=== PATIENT | female | born 1995 | race Caucasian/White ===

== ENCOUNTER 2021-06-17 00:10 | Inpatient (IN) | payer BC ==
[2021-06-17] MEDS ORDERED: Ibuprofen 800 MG TAB PO PRN (00:22)
[2021-06-17] MEDS ORDERED: Misoprostol 200 MCG TAB PR PRN (00:22)
[2021-06-17] MEDS ORDERED: Butorphanol Tartrate 1 MG/ML VIAL SLOW IVP PRN (00:22)
[2021-06-17] MEDS ORDERED: Lidocaine 1% (PF) 30 ML VIAL SC PRN (00:22)
[2021-06-17] MEDS ORDERED: hydrALAZINE 20 MG/ML VIAL SLOW IVP PRN ×2 (00:22→05:01)
[2021-06-17] MEDS ORDERED: Carboprost 250 MCG/ML AMP IM PRN (00:22)
[2021-06-17] MEDS ORDERED: Diphenoxylate HCl/Atropine Tablet PO PRN (00:22)
[2021-06-17] MEDS ORDERED: Methylergonovine 0.2 MG/ML VIAL IM PRN (00:22)
[2021-06-17] MEDS ORDERED: HYDROcodone/Acetaminophen 5/325 mg Tablet PO PRN (00:22)
[2021-06-17] MEDS ORDERED: Ondansetron PF 4 MG/2 ML Vial IVP PRN (00:22)
[2021-06-17] MEDS ORDERED: Promethazine HCl 25 MG/ML VIAL IM PRN (00:22)
[2021-06-17] MEDS ORDERED: Acetaminophen 500 MG TAB PO PRN (00:22)
[2021-06-17 00:30] VITALS: BMI 26.3
[2021-06-17] MEDS ORDERED: NS w/ Oxytocin 30 units 500 ML IV SCH (00:30)
[2021-06-17] MEDS ORDERED: Fentanyl 2 mcg/Bup 0.1% Cadd 100 ML ONE (00:54)
[2021-06-17 00:55] LABS: Hemoglobin 10.8 g/dL (12.0-15.5); Mean Corpuscular HGB CONC 33.1 g/dL (32.0-36.0); Mean Corpuscular Hemoglobin 29.9 pg (27.0-33.0); Mean Corpuscular Volume 90.3 fl (81.6-98.3); Mean Platelet Volume 11.6 fl (7.4-10.4); Platelet Count 175 10x3/uL (150-450); RBC Distribution Width 12.5 % (11.5-14.5); Red Blood Cell (RBC) Count 3.61 10x6/uL (3.90-5.03); White Blood Cell (WBC) Count 9.5 10x3/uL (3.5-10.5)
[2021-06-17 01:38] LABS: Hep B Surf Ag Non-Reactive S/CO (NonReactive)
[2021-06-17 01:39] LABS: Syphilis Antibody Nonreactive (Nonreactive); Syphilis Antibody Index 0.05 S/CO (<1.00 Non-Reactive)
[2021-06-17 02:11] LABS: HBSAg Index 0.15 S/CO (0-0.99)
[2021-06-17 02:43] LABS: SARS-CoV-2 NAA Rapid Test Not Detected (NotDetected)
[2021-06-17] MEDS ORDERED: Milk Of Magnesia 30 ML UDCUP PO PRN (05:01)
[2021-06-17] MEDS ORDERED: Bisacodyl 10 MG SUPP PR PRN (05:01)
[2021-06-17] MEDS: Lactated Ringer's 1,000 ML IV SCH ×3 (06:02→17:38)
[2021-06-17] MEDS: Docusate Calcium (SURFAK) 240 MG CAP PO SCH ×2 (09:15→23:04)
[2021-06-17] MEDS: Ferrous Sulfate 325 MG TAB PO SCH ×2 (09:17→17:38)
[2021-06-17] MEDS ORDERED: Lanolin Ointment 7 GM TUBE TOP PRN (15:13)
[2021-06-17] MEDS: Ibuprofen 800 MG TAB PO SCH ×2 (17:37→23:05)
[2021-06-18] MEDS: Lactated Ringer's 1,000 ML IV SCH ×2 (04:27→09:01)
[2021-06-18 05:18] LABS: #Eosinphils 0.1 10x3/uL (0.0-0.5); #Monocytes 0.8 10x3/uL (0.0-1.1); %Basophils 0.3 % (0.0-2.0); %Eosinophils 0.9 % (0.0-6.0); %Lymphocytes 20.1 % (18.0-47.0); %Monocytes 9.6 % (0.0-10.0); %Neutrophils 68.5 % (40.0-75.0); Mean Corpuscular HGB CONC 31.6 g/dL (32.0-36.0); Mean Corpuscular Hemoglobin 29.1 pg (27.0-33.0); Mean Corpuscular Volume 92.1 fl (81.6-98.3); Platelet Count 175 10x3/uL (150-450); RBC Distribution Width 12.6 % (11.5-14.5); Red Blood Cell (RBC) Count 3.78 10x6/uL (3.90-5.03); White Blood Cell (WBC) Count 8.8 10x3/uL (3.5-10.5)
[2021-06-18] MEDS: Ibuprofen 800 MG TAB PO SCH (09:02)
[2021-06-18] MEDS: Docusate Calcium (SURFAK) 240 MG CAP PO SCH (09:02)
[2021-06-18] MEDS: Ferrous Sulfate 325 MG TAB PO SCH (09:03)
[2021-06-18 09:05] VITALS: BP 107/72; TEMP 98
== END 2021-06-18 11:45 | disposition home or self-care (01) | DRG 807 ==
LOC: CSHLD/OP 00:10 → CSHLD 00:11 → CSHPED 05:45
PROVIDERS: ADMIT Obstetrics & Gynecology; ATTEND Obstetrics & Gynecology
PROC: 10E0XZZ Delivery of Products of Conception, External Approach (ICD-10-PCS; principal; 2021-06-17)
PROC: 0HQ9XZZ Repair Perineum Skin, External Approach (ICD-10-PCS; 2021-06-17)
DX: O69.3XX0 Labor and delivery complicated by short cord, not applicable or unspecified (principal); Z37.0 Single live birth; O70.0 First degree perineal laceration during delivery; Z20.822 Contact with and (suspected) exposure to COVID-19; Z3A.37 37 weeks gestation of pregnancy
CPT/HCPCS: 36415; 51702; 85025; 85027; 86780; 86850; 86900; 86901; 87340; 99285; U0002